=== PATIENT | male | born 1980 | race Caucasian/White ===

== ENCOUNTER 2019-05-19 17:59 | Emergency (ER) | payer OTHER, BC ==
[2019-05-19] MEDS ORDERED: OXYCODONE-ACETAMINOPHEN 5-325 MG TABLET PO ONE ×2 (18:44→22:21)
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
[2019-05-19] MEDS ORDERED: LIDOCAINE 1% INJ-PF (10 MG/ML) 30 ML SDV INJ ONE (22:21)
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
[2019-05-19 23:17] VITALS: BP 139/84
== END 2019-05-19 23:18 | disposition home or self-care (01) ==
LOC: ER 17:59
DX: S61.212A Laceration without foreign body of right middle finger without damage to nail, initial encounter (principal); S29.011A Strain of muscle and tendon of front wall of thorax, initial encounter; S20.311A Abrasion of right front wall of thorax, initial encounter; S80.212A Abrasion, left knee, initial encounter; S80.211A Abrasion, right knee, initial encounter; S50.311A Abrasion of right elbow, initial encounter; R07.1 Chest pain on breathing; V43.62XA Car passenger injured in collision with other type car in traffic accident, initial encounter
CPT/HCPCS: 73130; 71260; 72125; 12001; J3490; 99284

== ENCOUNTER 2019-05-26 18:51 | Emergency (ER) | payer OTHER, BC ==
[2019-05-26 19:01] VITALS: BP 133/97
--- NOTE | 2019-05-26 20:43 | ER Document Report ---
HPI - HPI Patient complains to provider of: Suture removal Time Seen by Provider: 05/26/19 20:38 Onset: Last week Onset/Duration: Better Pain Level: Denies Context: Patient presents for suture removal to right fourth finger laceration. Patient ports only mild tenderness to the finger. No erythema, no drainage Exacerbated by: Denies Relieved by: Denies Similar symptoms previously: No Recently seen / treated by doctor: Yes - ROS ROS below otherwise negative: Yes Systems Reviewed and Negative: Yes All other systems reviewed and negative - CONSTITUTIONAL Constitutional: DENIES: Fever - NEURO Neurology: DENIES: Weakness - REPRODUCTIVE Reproductive: DENIES: : - MUSCULOSKELETAL Musculoskeletal: REPORTS: Extremity pain - DERM Skin Color: Normal Skin Problems: Laceration Past Medical History - General Information source: Patient - Social History Smoking Status: Current Some Day Smoker Frequency of alcohol use: Occasional Drug Abuse: None Family History: Reviewed & Not Pertinent Patient has suicidal ideation: No Patient has homicidal ideation: No - Medical History Medical History: Negative Surgical Hx: Negative Vertical Provider Document - CONSTITUTIONAL Agree With Documented VS: Yes Exam Limitations: No Limitations General Appearance: WD/WN, No Apparent Distress - INFECTION CONTROL TRAVEL OUTSIDE OF THE [place] IN LAST 30 DAYS: No - HEENT HEENT: Atraumatic, Normocephalic - NECK Neck: Normal Inspection - RESPIRATORY Respiratory: No Respiratory Distress - CARDIOVASCULAR Pulses: Normal: Radial - MUSCULOSKELETAL/EXTREMETIES Musculoskeletal/Extremeties: MAEW, No Edema - NEURO Level of Consciousness: Awake, Alert, Appropriate Notes: Patient able to flex fingertips although does so guardedly due to increased tenderness - DERM Integumentary: Warm, Dry, Laceration - Sutured laceration to the right fourth finger over the palmar surface of the DIP joint, 3 intact sutures, no surrounding erythema Course - Vital Signs Vital signs: Temp Pulse Resp BP Pulse Ox 98.2 F 79 14 133/97 H 99 05/26/19 18:59 05/26/19 18:59 05/26/19 18:59 05/26/19 18:59 05/26/19 18:59 Discharge - Discharge Clinical Impression: Encounter for removal of sutures Condition: Stable Disposition: HOME, SELF-CARE Instructions: Suture Removal Additional Instructions: Return immediately for any new or worsening symptoms Follow-up with hand surgeon for any continued problems Referrals: WERTMAN,MADDY, DO [ACTIVE STAFF] - Follow up as needed
== END 2019-05-26 20:45 | disposition home or self-care (01) ==
LOC: ER 18:51
DX: S61.214D Laceration without foreign body of right ring finger without damage to nail, subsequent encounter (principal); X58.XXXD Exposure to other specified factors, subsequent encounter; F17.200 Nicotine dependence, unspecified, uncomplicated
CPT/HCPCS: 99281